=== PATIENT | female | born 1975 | race Caucasian/White ===

== ENCOUNTER 2019-06-15 08:27 | Outpatient (CLI) | payer OTHER ==
--- NOTE | 2019-06-15 08:39 | RAD ---
XR Chest Pa Lat STANDARD HISTORY: Chest pain COMPARISON: None. FINDINGS: Heart size is within normal limits. Mediastinal structures appear unremarkable. The lungs a re clear of infiltrates. Old left rib fractures seen. IMPRESSION: No active intrathoracic disease.
== END 2019-06-15 08:28 | disposition home or self-care (01) ==
LOC: RAD-FRANK 08:27
PROVIDERS: ATTEND Nurse Practitioner Family
DX: R07.9 Chest pain, unspecified (principal)
CPT/HCPCS: 71046